=== PATIENT | female | born 1960 ===

== ENCOUNTER 2020-12-02 10:12 | Outpatient (CLI) | payer OTHER | END 2020-12-02 10:50 | disposition home or self-care (01) | LOC: MRI 10:12 | PROVIDERS: ATTEND Orthopaedic Surgery | DX: M25.551 Pain in right hip (principal); M25.552 Pain in left hip; M54.5 Low back pain; M54.2 Cervicalgia ==

== ENCOUNTER 2020-12-02 12:11 | Outpatient (CLI) | payer OTHER | END 2020-12-02 12:16 | disposition home or self-care (01) | LOC: NUCLEAR 12:11 | DX: M81.0 Age-related osteoporosis without current pathological fracture (principal) ==